=== PATIENT | female | born 2000 | race American Indian/Alaskan Native ===

== ENCOUNTER 2020-01-16 12:50 | Emergency (ER) | payer BC ==
[2020-01-16] MEDS ORDERED: Morphine 4 MG/ML VIAL ONE (13:25)
--- NOTE | 2020-01-16 13:27 | RAD ---
2 views of the right humerus: 01/16/2020 COMPARISON: None HISTORY: Fall, trauma, pain FINDINGS: Mildly comminuted obliquely oriented fracture of the midshaft right humerus noted. The dist al fracture fragment is medially displaced by approximately 8 mm. There is mild lateral angulation. IMPRESSION: Fracture of the midshaft right humerus.
--- NOTE | 2020-01-16 13:47 | RAD ---
RIGHT FOREARM 2 VIEWS: Date: 01/16/2020 HISTORY: Fell from horse. FINDINGS: There are no signs of fracture of either the radius or ulna. IMPRESSION: Negative right forearm. POS: [facility]
== END 2020-01-16 14:15 | disposition home or self-care (01) ==
LOC: ERS 12:50
DX: S42.331A Displaced oblique fracture of shaft of humerus, right arm, initial encounter for closed fracture (principal); V80.010A Animal-rider injured by fall from or being thrown from horse in noncollision accident, initial encounter
CPT/HCPCS: 96372; J2270